=== PATIENT | male | born 1985 | race African-American/Black ===

== ENCOUNTER 2018-01-31 10:37 | Emergency (ER) | payer OTHER ==
[2018-01-31 10:42] VITALS: BP 156/99; PULSE 89; RESP 16; TEMP 98.3
[2018-01-31] MEDS ORDERED: IBUPROFEN 600 MG TAB PO STA (10:58)
--- NOTE | 2018-01-31 11:02 | ED ---
General Adult HPI - General Chief complaint: Extremity Injury, Upper Stated complaint: left wrist injury Time Seen by Provider: 01/31/18 10:44 Source: patient, RN notes reviewed Mode of arrival: ambulatory Limitations: no limitations - History of Present Illness Initial comments: 33-year-old male presents to the emergency department for a chief complaint of left wrist pain. Patient states that 2 days ago he had a trip and fall incident falling onto his left wrist. Patient states that pain has progressively worsened since that time especially with movement. He denies hitting his head or loss of consciousness during this fall. He denies any other injuries. Patient states extension of the wrist worsens his pain. Patient has not yet tried anything for pain. He denies any fevers or chills. He denies erythema or warmth. Patient has no other complaints at this time including shortness of breath, chest pain, abdominal pain, nausea or vomiting, headache, or visual changes. - Related Data Home Medications Medication Instructions Recorded Confirmed Cholecalciferol [Vitamin D3] 1,000 unit PO DAILY 01/31/18 01/31/18 Vitamin B Complex 1 cap PO DAILY 01/31/18 01/31/18 Allergies Allergy/AdvReac Type Severity Reaction Status Date / Time Sulfa (Sulfonamide Allergy Rash/Hives Verified 01/31/18 11:22 Antibiotics) Review of Systems ROS Statement: Those systems with pertinent positive or pertinent negative responses have been documented in the HPI. ROS Other: All systems not noted in ROS Statement are negative. Past Medical History Past Medical History: No Reported History History of Any Multi-Drug Resistant Organisms: None Reported Past Surgical History: No Surgical Hx Reported Past Psychological History: No Psychological Hx Reported Smoking Status: Current every day smoker Past Alcohol Use History: Occasional Past Drug Use History: None Reported General Exam Limitations: no limitations General appearance: alert, in no apparent distress Head exam: Present: atraumatic, normocephalic, normal inspection Eye exam: Present: normal appearance, PERRL, EOMI. Absent: scleral icterus, conjunctival injection, periorbital swelling ENT exam: Present: normal exam, mucous membranes moist Neck exam: Present: normal inspection, full ROM. Absent: tenderness, meningismus, lymphadenopathy Respiratory exam: Present: normal lung sounds bilaterally. Absent: respiratory distress, wheezes, rales, rhonchi, stridor Cardiovascular Exam: Present: regular rate, normal rhythm, normal heart sounds. 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 Absent: full ROM (Patient has full extension with 20 flexion of the left wrist), tenderness (No significant tenderness noted of the dorsal or volar left wrist. No scaphoid tenderness. No tenderness throughout the left hand.), joint swelling ( No significant edema, erythema, increased warmth noted of the left wrist) Neurological exam: Present: alert, oriented X3, CN II-XII intact Psychiatric exam: Present: normal affect, normal mood Course Vital Signs 01/31/18 10:40 Temperature 98.3 F Pulse Rate 89 Respiratory 16 Rate Blood Pressure 156/99 O2 Sat by Pulse 99 Oximetry Medical Decision Making - Medical Decision Making 33-year-old male presents to the emergency department for a chief complaint of left wrist pain. Patient fell 2 days ago and has had pain with range of motion since. On exam patient has intact range of motion, full extension with 20 flexion. Pain is worsened with flexion. He states pain is on the radial aspect of the wrist. Neurovascular intact. Wrist x-ray shows no acute fracture or dislocation however there is minor ulnar variance present. This was reviewed with Dr. Monteiro, both report and image. Patient's pain is mostly noted on the radial aspect of the wrist. He is not significantly tender over the ulna. On the appears equal to right wrist. At this point I do not think there is ulnar dislocation present. However, I did speak with patient about following up with orthopedics for this. He was wrapped with an Anuel wrap. He was educated he may need repeat x-rays in 7-10 days as well as symptoms do not improve. He is aware to return to the emergency department if he has any worsening symptoms. He was educated on rice therapy Disposition Clinical Impression: Wrist pain, left Disposition: HOME SELF-CARE Condition: Good Instructions: Wrist Injury (ED) Additional Instructions: Please rest ice and elevate the left wrist. Take Motrin or Tylenol for pain. Follow up with Dr. Hdez, orthopedics for your wrist. Return to the emergency department if you have any worsening symptoms. Is patient prescribed a controlled substance at d/c from ED?: No Referrals: Freddie Hdez MD [STAFF PHYSICIAN] - 1-2 days Bruno Mariano MD [STAFF PHYSICIAN] - 1-2 days Time of Disposition: 12:24
--- NOTE | 2018-01-31 11:39 | XR ---
EXAMINATION TYPE: XR wrist complete LT DATE OF EXAM: 01/31/2018 CLINICAL HISTORY: Fall injury 2 days ago with pain TECHNIQUE: Frontal, lateral, and oblique images of the left wrist are obtained. COMPARISON: None FINDINGS: There is no acute fracture/dislocation evident in the left wrist. The joint spaces in the left wrist appear within normal limits. Minus ulnar variance is present. The overlying soft tissue a ppears unremarkable. IMPRESSION: There is no acute fracture or dislocation in the left wrist.
== END 2018-01-31 12:28 | disposition home or self-care (01) ==
LOC: EC 10:37
DX: M25.532 Pain in left wrist (principal); R93.7 Abnormal findings on diagnostic imaging of other parts of musculoskeletal system; F17.200 Nicotine dependence, unspecified, uncomplicated; Z88.2 Allergy status to sulfonamides; W01.0XXA Fall on same level from slipping, tripping and stumbling without subsequent striking against object, initial encounter
CPT/HCPCS: 99283

== ENCOUNTER 2018-03-18 19:19 | Emergency (ER) | payer OTHER ==
[2018-03-18 19:35] VITALS: BP 154/87; PULSE 107; RESP 20; TEMP 98.1
[2018-03-18] MEDS ORDERED: KETOROLAC 30 MG/ML 1 ML VIAL IM STA (20:07)
--- NOTE | 2018-03-18 20:13 | ED ---
General Adult HPI - General Chief complaint: Recheck/Abnormal Lab/Rx Stated complaint: Leg pain, revisit Time Seen by Provider: 03/18/18 19:47 Source: patient, RN notes reviewed Mode of arrival: ambulatory Limitations: no limitations - History of Present Illness Initial comments: 33-year-old male presents to the emergency department for a chief complaint of left leg pain. Patient states that about 2 months ago he fell onto his low back and had low back pain initially. Patient states that about 2 weeks ago he started to have left hip pain that radiated down to the left foot. He states this was a sharp shooting pain. He states certain movements would make this pain worse. He was seen in the emergency department at that time and given steroids and Flexeril. He stated his pain did improve significantly however did not resolve so he presented back to the emergency department. Patient denies bladder or bowel changes. He denies saddle anesthesia. Patient denies any fevers or IV drug abuse. Patient has no other complaints at this time including shortness of breath, chest pain, abdominal pain, nausea or vomiting, headache, or visual changes. - Related Data Home Medications Medication Instructions Recorded Confirmed Ibuprofen [Motrin Ib] 200 mg PO BID PRN 03/10/18 03/10/18 Previous Rx's Medication Instructions Recorded Cyclobenzaprine [Flexeril] 10 mg PO TID PRN #15 tab 03/10/18 predniSONE 50 mg PO DAILY #5 tab 03/10/18 Cyclobenzaprine [Flexeril] 5 mg PO TID #12 tablet 03/18/18 predniSONE 50 mg PO DAILY #5 tablet 03/18/18 Allergies Allergy/AdvReac Type Severity Reaction Status Date / Time Sulfa (Sulfonamide Allergy Rash/Hives Verified 03/18/18 19:36 Antibiotics) Review of Systems ROS Statement: Those systems with pertinent positive or pertinent negative responses have been documented in the HPI. ROS Other: All systems not noted in ROS Statement are negative. Past Medical History Past Medical History: No Reported History History of Any Multi-Drug Resistant Organisms: None Reported Past Surgical History: No Surgical Hx Reported Past Psychological History: No Psychological Hx Reported Smoking Status: Current every day smoker Past Alcohol Use History: Occasional Past Drug Use History: None Reported General Exam Limitations: no limitations General appearance: alert, in no apparent distress Head exam: Present: atraumatic, normocephalic, normal inspection Eye exam: Present: normal appearance, PERRL, EOMI. Absent: scleral icterus, conjunctival injection, periorbital swelling ENT exam: Present: normal exam, mucous membranes moist Neck exam: Present: normal inspection, full ROM. Absent: tenderness, meningismus, lymphadenopathy Respiratory exam: Present: normal lung sounds bilaterally. Absent: respiratory distress, wheezes, rales, rhonchi, stridor Cardiovascular Exam: Present: regular rate, normal rhythm, normal heart sounds. Absent: systolic murmur, diastolic murmur, rubs, gallop, clicks GI/Abdominal exam: Present: soft, normal bowel sounds. Absent: distended, tenderness, guarding, rebound, rigid Extremities exam: Present: normal capillary refill (Capillary refill less than 2 seconds and DP pulse 2+.), other (Positive straight leg raise test). Absent: calf tenderness (No tenderness in the left calf) Neurological exam: Present: alert, oriented X3, CN II-XII intact Psychiatric exam: Present: normal affect, normal mood Course Vital Signs 03/18/18 19:30 Temperature 98.1 F Pulse Rate 107 H Respiratory 20 Rate Blood Pressure 154/87 O2 Sat by Pulse 99 Oximetry Medical Decision Making - Medical Decision Making 33-year-old male presents to the emergency department for a chief complaint of leg pain. Patient describes the pain as a shooting pain from his hip down to his foot. Tenderness to the sciatic notch is noted. Positive straight leg raise test. No bladder or bowel changes, no saddle anesthesia, no fevers or chills. No spinal tenderness or pain. Patient did have resolving symptoms with five-day course of steroids however pain has reoccurred. Discussed with patient that we will try one more course of steroids but that he needs to see Dr. Boateng if this does not resolve. Discussed eating while taking steroids and Motrin together. Discussed following up with primary care in Dr. Boateng. Patient will return here if he has worsening symptoms or fevers. Disposition Clinical Impression: Lumbar radiculopathy, acute Disposition: HOME SELF-CARE Condition: Good Additional Instructions: Please take steroid and Flexeril as directed. Take Motrin as needed for pain. Take food when when taking Motrin and steroids. Do not operate or drive machinery while taking muscle relaxer. Return to the emergency department if you have any worsening symptoms. Prescriptions: Cyclobenzaprine [Flexeril] 5 mg PO TID #12 tablet predniSONE 50 mg PO DAILY #5 tablet Is patient prescribed a controlled substance at d/c from ED?: No Referrals: Isaiah Boateng DO [Doctor of Osteopathic Medicine] - 1-2 days Cindy Jones MD [STAFF PHYSICIAN] - 1-2 days Time of Disposition: 20:10
== END 2018-03-18 20:50 | disposition home or self-care (01) ==
LOC: EC 19:19
DX: M54.16 Radiculopathy, lumbar region (principal); F17.200 Nicotine dependence, unspecified, uncomplicated; Z88.2 Allergy status to sulfonamides
CPT/HCPCS: 99283; 96372; J1885

== ENCOUNTER 2018-04-15 23:24 | Emergency (ER) | payer OTHER ==
[2018-04-15] MEDS ORDERED: EPINEPHrine 10 ML SYRINGE (0.1 MG/ML) ONE (23:26)
[2018-04-15] MEDS ORDERED: NALOXONE 0.4 MG/ML 10 ML VIAL ONE (23:26)
[2018-04-15] MEDS ORDERED: SODIUM BICARB 8.4% 50 ML SYR (1 MEQ/ML) ONE (23:26)
[2018-04-15] MEDS ORDERED: SODIUM CHLORIDE 0.9% 500 ML 500 ML IV STA (23:34)
[2018-04-15] MEDS ORDERED: SODIUM CHLORIDE 0.9% 1,000 ML IV STA ×2 (23:34)
[2018-04-15] MEDS ORDERED: MIDAZOLAM 1 MG/ML 5 ML VIAL IV STA (23:39)
[2018-04-15] MEDS ORDERED: NOREPINEPHRINE 8 MG in SODIUM CHLORIDE 0.9% 250 ML IV SCH (23:45)
[2018-04-15] MEDS ORDERED: NOREPINEPHRINE 32 MG in SODIUM CHLORIDE 0.9% 218 ML IV SCH (23:45)
[2018-04-15] MEDS: NALOXONE 2 MG in SODIUM CHLORIDE 0.9% 250 ML IV SCH (23:45)
--- NOTE | 2018-04-15 23:50 | XR ---
EXAM: XR Chest, 1 View CLINICAL HISTORY: cpr TECHNIQUE: Frontal view of the chest. COMPARISON: No relevant prior studies available. FINDINGS: Lungs: Moderate amount of airspace opacity throughout both lungs. Pleural space: Unremarkable. No pneumothorax. Heart: Unremarkable. No cardiomegaly. Mediastinum: Unremarkable. Bones/joints: Unremarkable. Tubes, lines and devices: Tip of endotracheal tube is about 4.7 cm above the cecelia. IMPRESSION: Moderate amount of airspace opacity throughout both lungs suggest pulmonary edema versus pneumonia.
--- NOTE | 2018-04-15 23:56 | ED ---
CPR HPI - General Chief Complaint: Overdose Stated Complaint: Drug Overdose Time Seen by Provider: 04/15/18 23:26 Source: EMS, RN notes reviewed, old records reviewed Mode of arrival: EMS Limitations: altered mental status - History of Present Illness Initial Comments: This is a 33-year-old male to the ER for evaluation. Presents today for evaluation with acute overdose, patient unable to give history, history of heroin. Patient's vital by EMS with in the field arrest, there were called for drug overdoses patient was apneic with in the field CPR. EMS was able to give Narcan he did have response to original Narcan but then lost pulses, patient was intubated in the field and brought to ER under CPR, ACLS protocol. MD Complaint: found unresponsive, stopped breathing (Secondary to heroin) -: unknown Place: home Bystander CPR Performed: Yes AED Applied by Bystander/Sql Tech: Yes Shock Advised: No Initial Findings in the Field: unresponsive, no respirations, agonal, no pulse ROSC in the Field: Yes Associated Injuries: No Treatments Prior to Arrival: intubation, chest compressions, epinephrine mgs # - Related Data Home Medications Medication Instructions Recorded Confirmed Ibuprofen [Motrin Ib] 200 mg PO BID PRN 03/10/18 03/10/18 Previous Rx's Medication Instructions Recorded Cyclobenzaprine [Flexeril] 10 mg PO TID PRN #15 tab 03/10/18 predniSONE 50 mg PO DAILY #5 tab 03/10/18 Cyclobenzaprine [Flexeril] 5 mg PO TID #12 tablet 03/18/18 predniSONE 50 mg PO DAILY #5 tablet 03/18/18 Allergies Allergy/AdvReac Type Severity Reaction Status Date / Time Sulfa (Sulfonamide Allergy Rash/Hives Verified 03/18/18 19:36 Antibiotics) Review of Systems ROS Statement: Those systems with pertinent positive or pertinent negative responses have been documented in the HPI. ROS Other: All systems not noted in ROS Statement are negative. Past Medical History Past Medical History: No Reported History History of Any Multi-Drug Resistant Organisms: None Reported Past Surgical History: No Surgical Hx Reported Past Psychological History: No Psychological Hx Reported Smoking Status: Current every day smoker Past Alcohol Use History: Occasional Past Drug Use History: None Reported General Exam Limitations: altered mental status, physical limitation General appearance: obtunded, in distress Head exam: Present: atraumatic, normocephalic, normal inspection Eye exam: Present: normal appearance, other (Pupils have minimal responsiveness) . Absent: scleral icterus, conjunctival injection, periorbital swelling ENT exam: Present: normal exam, mucous membranes moist Neck exam: Present: normal inspection. Absent: tenderness, meningismus, lymphadenopathy Respiratory exam: Present: rales, decreased breath sounds, other (Neck). Absent : respiratory distress, wheezes, rhonchi, stridor Cardiovascular Exam: Present: bradycardia. Absent: systolic murmur, diastolic murmur, rubs, gallop, clicks GI/Abdominal exam: Present: soft, normal bowel sounds. Absent: distended, tenderness, guarding, rebound, rigid Extremities exam: Present: normal inspection, full ROM, normal capillary refill. Absent: tenderness, pedal edema, joint swelling, calf tenderness Back exam: Present: normal inspection Skin exam: Present: warm, dry, intact, normal color. Absent: rash Course Vital Signs 04/15/18 04/15/18 04/15/18 23:24 23:30 23:42 Temperature 97 F L Pulse Rate 0 L 90 90 Respiratory 14 Rate Blood Pressure O2 Sat by Pulse 97 Oximetry 04/15/18 04/15/18 04/15/18 23:45 23:48 23:50 Temperature Pulse Rate 108 H 120 H Respiratory 14 Rate Blood Pressure 71/27 71/27 O2 Sat by Pulse 93 L 92 L Oximetry 04/15/18 04/16/18 04/16/18 23:56 00:00 00:08 Temperature Pulse Rate 101 H 98 92 Respiratory 20 14 Rate Blood Pressure 69/29 69/29 89/37 O2 Sat by Pulse 96 95 96 Oximetry 04/16/18 04/16/18 04/16/18 00:10 00:15 00:20 Temperature Pulse Rate 91 89 Respiratory 14 14 Rate Blood Pressure 89/37 92/44 O2 Sat by Pulse 96 96 Oximetry 04/16/18 04/16/18 04/16/18 00:23 00:30 00:40 Temperature 97.1 F L Pulse Rate 86 94 104 H Respiratory 14 14 14 Rate Blood Pressure 95/46 106/46 151/91 O2 Sat by Pulse 94 L 97 99 Oximetry 04/16/18 04/16/18 04/16/18 00:50 00:51 01:00 Temperature Pulse Rate 93 93 Respiratory 14 14 14 Rate Blood Pressure 162/96 162/96 O2 Sat by Pulse 100 92 L Oximetry 04/16/18 01:10 Temperature Pulse Rate 107 H Respiratory 14 Rate Blood Pressure 124/52 O2 Sat by Pulse 100 Oximetry - Reevaluation(s) Reevaluation #1: 04/16/18 00:59 Medical record reviewed Reevaluation #2: 04/16/18 00:59 Patient worked diligently, was every daily for treatment return of spontaneous circulation with significant amount of Narcan, Narcan drip, epinephrine and Levothroid drip, - Consultations Consultation #1: Decision made to transfer patient to [facility] for further ICU in critical care support including neurology. [facility] except transfer Medical Decision Making - Medical Decision Making 33-year-old male the ER for evaluation, overdose regarding and hypoxic cardiac arrest, patient is received return of spontaneous circulation, with poor prognosis. Patient to be admitted to ICU for current further evaluation management - Lab Data Result diagrams: 04/15/18 23:39 04/15/18 23:39 Lab Results 04/15/18 04/15/18 04/15/18 Range/Units 23:39 23:39 23:39 WBC (3.8-10.6) k/uL RBC (4.30-5.90) m/uL Hgb (13.0-17.5) gm/dL Hct (39.0-53.0) % MCV (80.0-100.0) fL MCH (25.0-35.0) pg MCHC (31.0-37.0) g/dL RDW (11.5-15.5) % Plt Count (150-450) k/uL Neutrophils % (Manual) % Band Neutrophils % % Lymphocytes % (Manual) % Monocytes % (Manual) % Eosinophils % (Manual) % Neutrophils # (Manual) (1.3-7.7) k/uL Lymphocytes # (Manual) (1.0-4.8) k/uL Monocytes # (Manual) (0-1.0) k/uL Eosinophils # (Manual) (0-0.7) k/uL Nucleated RBCs (0-0) /100 WBC Manual Slide Review Reactive Lymphocytes Hypochromasia PT (9.0-12.0) sec INR (<1.2) APTT (22.0-30.0) sec Sample Site ABG pH (7.35-7.45) ABG pCO2 (35-45) mmHg ABG pO2 (83-108) mmHg ABG HCO3 (21-25) mmol/L ABG Total CO2 (19-24) mmol/L ABG O2 Saturation (94-97) % ABG Base Excess mmol/L Delfino Test VBG pH 7.01 L* (7.31-7.41) VBG pCO2 81 H* (37-51) mmHg VBG HCO3 20 L (24-28) mmol/L FiO2 % Sodium 144 (137-145) mmol/L Potassium 5.4 H (3.5-5.1) mmol/L Chloride 103 (98-107) mmol/L Carbon Dioxide 19 L (22-30) mmol/L Anion Gap 22 mmol/L BUN 24 H (9-20) mg/dL Creatinine 2.33 H (0.66-1.25) mg/dL Est GFR (CKD-EPI)AfAm 42 (>60 ml/min/1.73 sqM) Est GFR (CKD-EPI)NonAf 36 (>60 ml/min/1.73 sqM) Glucose 229 H (74-99) mg/dL Plasma Lactic Acid Sae (0.7-2.0) mmol/L Calcium 8.7 (8.4-10.2) mg/dL Phosphorus 14.2 H* (2.5-4.5) mg/dL Magnesium 2.8 H (1.6-2.3) mg/dL Total Bilirubin 0.6 (0.2-1.3) mg/dL AST 59 (17-59) U/L ALT 61 (21-72) U/L Alkaline Phosphatase 58 (38-126) U/L Creatine Kinase 343 H (55-170) U/L CK-MB (CK-2) 2.7 H (0.0-2.4) ng/mL Troponin I 0.042 H* (0.000-0.034) ng/mL Total Protein 6.0 L (6.3-8.2) g/dL Albumin 3.5 (3.5-5.0) g/dL Urine Color Urine Appearance (Clear) Urine pH (5.0-8.0) Ur Specific [place] (1.001-1.035) Urine Protein (Negative) Urine Glucose (UA) (Negative) Urine Ketones (Negative) Urine Blood (Negative) Urine Nitrite (Negative) Urine Bilirubin (Negative) Urine Urobilinogen (<2.0) mg/dL Ur Leukocyte Esterase (Negative) Urine RBC (0-5) /hpf Urine WBC (0-5) /hpf Hyaline Casts (0-2) /lpf Urine Mucus (None) /hpf Urine Sperm (None) /hpf Salicylates <1.0 mg/dL Urine Opiates Screen (NotDetected) Ur Oxycodone Screen (NotDetected) Urine Methadone Screen (NotDetected) Ur Propoxyphene Screen (NotDetected) Acetaminophen <10.0 ug/mL Ur Barbiturates Screen (NotDetected) U Tricyclic Antidepress (NotDetected) Ur Phencyclidine Scrn (NotDetected) Ur Amphetamines Screen (NotDetected) U Methamphetamines Scrn (NotDetected) U Benzodiazepines Scrn (NotDetected) Urine Cocaine Screen (NotDetected) U Marijuana (THC) Screen (NotDetected) 04/15/18 04/15/18 04/15/18 Range/Units 23:39 23:39 23:39 WBC 6.1 (3.8-10.6) k/uL RBC 5.21 (4.30-5.90) m/uL Hgb 14.3 (13.0-17.5) gm/dL Hct 47.1 (39.0-53.0) % MCV 90.5 (80.0-100.0) fL MCH 27.5 (25.0-35.0) pg MCHC 30.4 L (31.0-37.0) g/dL RDW 12.9 (11.5-15.5) % Plt Count 293 (150-450) k/uL Neutrophils % (Manual) 36 % Band Neutrophils % 5 % Lymphocytes % (Manual) 56 % Monocytes % (Manual) 2 % Eosinophils % (Manual) 1 % Neutrophils # (Manual) 2.50 (1.3-7.7) k/uL Lymphocytes # (Manual) 3.42 (1.0-4.8) k/uL Monocytes # (Manual) 0.12 (0-1.0) k/uL Eosinophils # (Manual) 0.06 (0-0.7) k/uL Nucleated RBCs 1 H (0-0) /100 WBC Manual Slide Review Performed Reactive Lymphocytes Present Hypochromasia Marked PT 10.0 (9.0-12.0) sec INR 0.9 (<1.2) APTT 22.6 (22.0-30.0) sec Sample Site ABG pH (7.35-7.45) ABG pCO2 (35-45) mmHg ABG pO2 (83-108) mmHg ABG HCO3 (21-25) mmol/L ABG Total CO2 (19-24) mmol/L ABG O2 Saturation (94-97) % ABG Base Excess mmol/L Delfino Test VBG pH (7.31-7.41) VBG pCO2 (37-51) mmHg VBG HCO3 (24-28) mmol/L FiO2 % Sodium (137-145) mmol/L Potassium (3.5-5.1) mmol/L Chloride (98-107) mmol/L Carbon Dioxide (22-30) mmol/L Anion Gap mmol/L BUN (9-20) mg/dL Creatinine (0.66-1.25) mg/dL Est GFR (CKD-EPI)AfAm (>60 ml/min/1.73 sqM) Est GFR (CKD-EPI)NonAf (>60 ml/min/1.73 sqM) Glucose (74-99) mg/dL Plasma Lactic Acid Sae 12.0 H* (0.7-2.0) mmol/L Calcium (8.4-10.2) mg/dL Phosphorus (2.5-4.5) mg/dL Magnesium (1.6-2.3) mg/dL Total Bilirubin (0.2-1.3) mg/dL AST (17-59) U/L ALT (21-72) U/L Alkaline Phosphatase (38-126) U/L Creatine Kinase (55-170) U/L CK-MB (CK-2) (0.0-2.4) ng/mL Troponin I (0.000-0.034) ng/mL Total Protein (6.3-8.2) g/dL Albumin (3.5-5.0) g/dL Urine Color Urine Appearance (Clear) Urine pH (5.0-8.0) Ur Specific [place] (1.001-1.035) Urine Protein (Negative) Urine Glucose (UA) (Negative) Urine Ketones (Negative) Urine Blood (Negative) Urine Nitrite (Negative) Urine Bilirubin (Negative) Urine Urobilinogen (<2.0) mg/dL Ur Leukocyte Esterase (Negative) Urine RBC (0-5) /hpf Urine WBC (0-5) /hpf Hyaline Casts (0-2) /lpf Urine Mucus (None) /hpf Urine Sperm (None) /hpf Salicylates mg/dL Urine Opiates Screen (NotDetected) Ur Oxycodone Screen (NotDetected) Urine Methadone Screen (NotDetected) Ur Propoxyphene Screen (NotDetected) Acetaminophen ug/mL Ur Barbiturates Screen (NotDetected) U Tricyclic Antidepress (NotDetected) Ur Phencyclidine Scrn (NotDetected) Ur Amphetamines Screen (NotDetected) U Methamphetamines Scrn (NotDetected) U Benzodiazepines Scrn (NotDetected) Urine Cocaine Screen (NotDetected) U Marijuana (THC) Screen (NotDetected) 04/15/18 04/16/18 Range/Units 23:39 00:10 WBC (3.8-10.6) k/uL RBC (4.30-5.90) m/uL Hgb (13.0-17.5) gm/dL Hct (39.0-53.0) % MCV (80.0-100.0) fL MCH (25.0-35.0) pg MCHC (31.0-37.0) g/dL RDW (11.5-15.5) % Plt Count (150-450) k/uL Neutrophils % (Manual) % Band Neutrophils % % Lymphocytes % (Manual) % Monocytes % (Manual) % Eosinophils % (Manual) % Neutrophils # (Manual) (1.3-7.7) k/uL Lymphocytes # (Manual) (1.0-4.8) k/uL Monocytes # (Manual) (0-1.0) k/uL Eosinophils # (Manual) (0-0.7) k/uL Nucleated RBCs (0-0) /100 WBC Manual Slide Review Reactive Lymphocytes Hypochromasia PT (9.0-12.0) sec INR (<1.2) APTT (22.0-30.0) sec Sample Site Left Radial ABG pH <7.00 L* (7.35-7.45) ABG pCO2 119 H* (35-45) mmHg ABG pO2 93 (83-108) mmHg ABG HCO3 19 L (21-25) mmol/L ABG Total CO2 23 (19-24) mmol/L ABG O2 Saturation 88.6 L (94-97) % ABG Base Excess -14.8 mmol/L Delfino Test Yes VBG pH (7.31-7.41) VBG pCO2 (37-51) mmHg VBG HCO3 (24-28) mmol/L FiO2 100 % Sodium (137-145) mmol/L Potassium (3.5-5.1) mmol/L Chloride (98-107) mmol/L Carbon Dioxide (22-30) mmol/L Anion Gap mmol/L BUN (9-20) mg/dL Creatinine (0.66-1.25) mg/dL Est GFR (CKD-EPI)AfAm (>60 ml/min/1.73 sqM) Est GFR (CKD-EPI)NonAf (>60 ml/min/1.73 sqM) Glucose (74-99) mg/dL Plasma Lactic Acid Sae (0.7-2.0) mmol/L Calcium (8.4-10.2) mg/dL Phosphorus (2.5-4.5) mg/dL Magnesium (1.6-2.3) mg/dL Total Bilirubin (0.2-1.3) mg/dL AST (17-59) U/L ALT (21-72) U/L Alkaline Phosphatase (38-126) U/L Creatine Kinase (55-170) U/L CK-MB (CK-2) (0.0-2.4) ng/mL Troponin I (0.000-0.034) ng/mL Total Protein (6.3-8.2) g/dL Albumin (3.5-5.0) g/dL Urine Color Yellow Urine Appearance Clear (Clear) Urine pH 5.0 (5.0-8.0) Ur Specific [place] 1.020 (1.001-1.035) Urine Protein 1+ H (Negative) Urine Glucose (UA) Trace H (Negative) Urine Ketones Negative (Negative) Urine Blood Negative (Negative) Urine Nitrite Negative (Negative) Urine Bilirubin Negative (Negative) Urine Urobilinogen <2.0 (<2.0) mg/dL Ur Leukocyte Esterase Negative (Negative) Urine RBC <1 (0-5) /hpf Urine WBC 2 (0-5) /hpf Hyaline Casts 4 H (0-2) /lpf Urine Mucus Rare H (None) /hpf Urine Sperm Rare (None) /hpf Salicylates mg/dL Urine Opiates Screen Detected H (NotDetected) Ur Oxycodone Screen Not Detected (NotDetected) Urine Methadone Screen Not Detected (NotDetected) Ur Propoxyphene Screen Not Detected (NotDetected) Acetaminophen ug/mL Ur Barbiturates Screen Not Detected (NotDetected) U Tricyclic Antidepress Not Detected (NotDetected) Ur Phencyclidine Scrn Not Detected (NotDetected) Ur Amphetamines Screen Not Detected (NotDetected) U Methamphetamines Scrn Not Detected (NotDetected) U Benzodiazepines Scrn Not Detected (NotDetected) Urine Cocaine Screen Detected H (NotDetected) U Marijuana (THC) Screen Detected H (NotDetected) - EKG Data -: EKG Interpreted by Me (EKG shows A. fib with RVR rate 108, QRS 112, QTc 380.) - Radiology Data Radiology results: report reviewed (Chest x-rays positive intubation positive pulmonary edema, aspiration pneumonia), image reviewed Critical Care Time Critical Care Time: Yes Total Critical Care Time: 95 Disposition Clinical Impression: Drug overdose, Heroin overdose, Cardiopulmonary arrest Disposition: OTHER INSTITUTION NOT DEFINED Condition: Critical Is patient prescribed a controlled substance at d/c from ED?: No - Out of Hospital Transfer - Req. Specs Out of Hospital Transfer - Requested Specifics: Other Emergency [facility] ([facility]
[2018-04-16 00:03] LABS: Appearance,Urine Clear (Clear); Bilirubin,Urine Negative (Negative); Blood,Urine Negative (Negative); Color,Urine Yellow; Glucose,Urine (UA) Trace (Negative); Hyaline Casts,Urine 4 /lpf (0-2); Hypochromasia Marked; Ketones,Urine Negative (Negative); Leukocyte Esterase,Urine Negative (Negative); Mucus,Urine Rare /hpf; Nitrite,Urine Negative (Negative); Protein,Urine 1+ (Negative); RBC,Urine <1 /hpf (0-5); Sperm,Urine Rare /hpf; Urobilinogen,Urine <2.0 mg/dL (<2.0); WBC,Urine 2 /hpf (0-5)
[2018-04-16 00:04] LABS: VBG PH 7.01 (7.31-7.41)
[2018-04-16 00:09] LABS: INR 0.9 (<1.2); Partial Thromboplastin Time 22.6 sec (22.0-30.0)
[2018-04-16 00:10] LABS: ALT 61 U/L (21-72); AST 59 U/L (17-59); Acetaminophen <10.0 ug/mL; Albumin 3.5 g/dL (3.5-5.0); Alkaline Phosphatase 58 U/L (38-126); Amphetamine Screen,Urine Not Detected (NotDetected); Anion Gap 22 mmol/L; Barbiturate Screen,Urine Not Detected (NotDetected); Benzodiazepines Screen,Urine Not Detected (NotDetected); Blood Urea Nitrogen 24 mg/dL (9-20); Calcium 8.7 mg/dL (8.4-10.2); Carbon Dioxide 19 mmol/L (22-30); Chloride 103 mmol/L (98-107); Cocaine Screen,Urine Detected (NotDetected); Glucose 229 mg/dL (74-99); Magnesium 2.8 mg/dL (1.6-2.3); Methadone Screen, Urine Not Detected (NotDetected); Opiate Screen,Urine Detected (NotDetected); Oxycodone Screen, Urine Not Detected (NotDetected); Phencyclidine Screen,Urine Not Detected (NotDetected); Potassium 5.4 mmol/L (3.5-5.1); Salicylate <1.0 mg/dL; Sodium 144 mmol/L (137-145); Total Bilirubin 0.6 mg/dL (0.2-1.3); Tricyclic Antidepressant,Urine Not Detected (NotDetected); Urn Cannabinoid Scrn Detected (NotDetected)
[2018-04-16] MEDS: NALOXONE 2 MG in SODIUM CHLORIDE 0.9% 250 ML IV SCH ×5 (00:15→02:32)
[2018-04-16 00:20] LABS: ABG Base Excess -14.8 mmol/L; ABG HCO3 19 mmol/L (21-25); ABG Oxygen Saturation 88.6 % (94-97); ABG PO2 93 mmHg (83-108); ABG TCO2 23 mmol/L (19-24)
[2018-04-16 00:20] LABS: Phosphorus 14.2 mg/dL (2.5-4.5)
[2018-04-16 00:21] LABS: Creatine Kinase MB 2.7 ng/mL (0.0-2.4); HCT 47.1 % (39.0-53.0); HGB 14.3 gm/dL (13.0-17.5); MCH 27.5 pg (25.0-35.0); MCHC 30.4 g/dL (31.0-37.0); MCV 90.5 fL (80.0-100.0); Mean Platelet Volume 6.7; Platelet Count 293 k/uL (150-450); RBC 5.21 m/uL (4.30-5.90); RDW 12.9 % (11.5-15.5)
[2018-04-16 00:25] LABS: Troponin I 0.042 ng/mL (0.000-0.034)
[2018-04-16 00:26] LABS: ABG PCO2 119 mmHg (35-45); ABG PH <7.00 (7.35-7.45)
[2018-04-16 00:34] LABS: Creatine Kinase 343 U/L (55-170)
[2018-04-16 00:36] VITALS: TEMP 97.1
[2018-04-16 00:47] LABS: Band Neutrophils % 5 %; Eosinophils # (M) 0.06 k/uL (0-0.7); Lymphocytes # (M) 3.42 k/uL (1.0-4.8); Monocytes # (M) 0.12 k/uL (0-1.0); Neutrophils % (M) 36 %; Nucleated Red Blood Cells 1 /100 WBC (0-0); Reactive Lymphocytes Present; Total Cells Counted 200; WBC 6.1 k/uL (3.8-10.6)
[2018-04-16] MEDS ORDERED: CLINDAMYCIN 600 MG in DEXTROSE 5% IN WATER 50 ML IVPB STA ×2 (00:54)
[2018-04-16] MEDS ORDERED: LEVOFLOXACIN 750MG-D5W PMX 750 MG in DEXTROSE/WATER 1 150ML.BAG IVPB STA (00:54)
[2018-04-16] MEDS ORDERED: IPRATROPIUM-ALBUTEROL 3 ML NEB INHALATION STA (00:55)
[2018-04-16] MEDS ORDERED: NALOXONE 0.4 MG/ML 1 ML VIAL IV PRN (01:01)
[2018-04-16] MEDS ORDERED: DEXTROSE 5%-0.45% NACL 1,000 ML IV SCH (01:15)
[2018-04-16] MEDS ORDERED: MIDAZOLAM 1 MG/ML 5 ML VIAL IV STA (01:26)
[2018-04-16] MEDS ORDERED: PIPERACILLIN-TAZOBACTAM 3.375 GM in SODIUM CHLORIDE 0.9% 100 ML IVPB STA (01:33)
[2018-04-16 02:13] VITALS: RESP 12
[2018-04-16 02:53] VITALS: BP 97/40; PULSE 109
[2018-04-16] MEDS ORDERED: IPRATROPIUM-ALBUTEROL 3 ML NEB INHALATION SCH (04:00)
[2018-04-16] MEDS ORDERED: PANTOPRAZOLE 40 MG/10 ML VIAL IV SCH (09:00)
[2018-04-16] MEDS ORDERED: ENOXAPARIN 40 MG/0.4 ML SYRINGE SQ SCH (09:00)
== END 2018-04-16 02:51 | disposition other institution (70) ==
LOC: EC 23:24 → 2SICU 04-16 01:01 → UNDOADMIN 04-16 01:01 → 2SICU 04-16 02:51
DX: T40.1X1A Poisoning by heroin, accidental (unintentional), initial encounter (principal); I46.9 Cardiac arrest, cause unspecified; F17.200 Nicotine dependence, unspecified, uncomplicated; Z88.2 Allergy status to sulfonamides
CPT/HCPCS: 99291; 99292; 36556; 92950; 96365; 96366 ×2; 96368; 36415 ×2; 94640; 36600; 94002; 93005; 80053; 82550; 82553; 82805; 82803; 83605; 83735; 84100; 84484; 85025; 85610; 85730; 81001; 87040; 80306; 83520 ×2; 87070; 87086; 87205; 71045; J2543; J2310 ×2; J2250; J1956